=== PATIENT | male | born 1995 | race Caucasian/White ===

== ENCOUNTER 2016-08-10 04:36 | Emergency (ER) | payer MEDICAID ==
[~2016-08-10] VITALS: Ht 170.2 cm; Wt 81.4 kg
[2016-08-10] MEDS ORDERED: DEXAMETHASONE SOD PHOS 4 MG/ML 5 ML VIAL IM ONE (05:00)
[2016-08-10 05:36] VITALS: BP 132/92
== END 2016-08-10 05:45 | disposition home or self-care (01) ==
LOC: EMS 04:39
DX: J00 Acute nasopharyngitis [common cold] (principal); F17.210 Nicotine dependence, cigarettes, uncomplicated
CPT/HCPCS: 96372; 99283; J1100

== ENCOUNTER 2016-08-21 02:36 | Emergency (ER) | payer MEDICAID ==
[~2016-08-21] VITALS: Ht 170.2 cm; Wt 70.0 kg
[2016-08-21] MEDS ORDERED: DEXAMETHASONE SOD PHOS 4 MG/ML 5 ML VIAL IM ONE (04:30)
[2016-08-21] MEDS ORDERED: PENICILLIN G BENZATHINE LA 1,200,000 UNITS/2 ML SYRINGE IM ONE (04:30)
[2016-08-21] MEDS ORDERED: IBUPROFEN 800 MG TABLET PO ONE (04:30)
[2016-08-21 04:57] VITALS: BP 135/86
== END 2016-08-21 05:14 | disposition home or self-care (01) ==
LOC: EMS 02:37
DX: J03.90 Acute tonsillitis, unspecified (principal); F17.210 Nicotine dependence, cigarettes, uncomplicated; F12.10 Cannabis abuse, uncomplicated
CPT/HCPCS: 96372; 99284; 99406; J0561; J1100